=== PATIENT | female | born 1970 | race African-American/Black ===

== ENCOUNTER → 2017-01-07 | Outpatient (CLI) | payer OTHER ==
[~2017-01-07] MED LIST: ALBUTEROL SULFA10 GM INH; AMLODIPINE BESY10 MG PO; APRESOLINE PO; BACTRIM DS TABL1 TA1 DOB; BACTRIM DS TABL1 TA1 PO; BENTYL20 MG DOB; BUMETANIDE2 M1 PO; BUMEX PO; CALCIUM 5001 TAB PO; HUMALOG100 U/ML SUBQ; HYDRALAZINE HCL50 MG PO; HYDROCHLOROTHIA25 MG PO; IRON SUPPLEMENT1 TAB PO; IRON325 ( 651 PO; LANTUS100 U/ML SUBQ; LANTUS100 UNITS/; LISINOPRIL PO; METOPROLOL TAR25 MG PO; MIRALAX17 G2 PO; NAPROSYN500 MG PO; NOVOLOG100 U/ML; PREDNISONE5 MG PO; PROTONIX20 MG PO; PYRIDIUM100 MG PO; SOD BICARBONATE PO; TOPROL XL PO; ZYVOX600 MG PO
[2017-01-07 10:08] LABS: HEMATOCRIT 29.5 % (35.0-45.0); HEMOGLOBIN 9.6 gm/dL (12.0-16.0); MEAN CELL VOLUME 88.2 FL (83-96); MEAN CORPUSCULAR HEMOGLOBIN 28.5 PG (28-34); MEAN CORPUSCULAR HGB CONC 32.3 g/dL (30-36); MEAN PLATELET VOLUME 9.7 FL (6.5-11.5); RED BLOOD COUNT 3.35 X10e (3.90-5.30); RED CELL DISTRIBUTION WIDTH 13.4 % (11.0-15.5); URINE APPEARANCE CLOUDY; URINE BILIRUBIN NEG (NEG); URINE BLOOD 1+ (NEG); URINE COLOR YELLOW; URINE GLUCOSE >1000 MG/DL (NEG); URINE KETONE NEG (NEG); URINE LEUKOCYTE ESTERASE 2+ (NEG); URINE NITRATE NEG (NEG); URINE PROTEIN 3+ (NEG); URINE SPECIFIC GRAVITY 1.013 (1.003-1.035); URINE UROBILINOGEN 0.2 MG/DL (NEG); WHITE BLOOD COUNT 6.5 X10e3 (4.0-10.5)
[2017-01-07 10:10] LABS: U HYALINE CASTS AUWI 0-2 /[LPF]; URINE BACTERIA AUWI 4+ (NEGATIVE); URINE SQUAMOUS EPITHELIAL CELL FEW /[HPF]; UWBCS1 AUWI 200-300 (0-5)
[2017-01-07 10:37] LABS: CREATININE,RANDOM URINE 41 mg/dL; TOTAL PROTEIN,RANDOM URINE 173 mg/dl (<10)
[2017-01-07 10:45] LABS: ALBUMIN SERUM 3.5 g/dL (3.5-5.0); BILIRUBIN,TOTAL 0.7 mg/dL (0.2-2.0); BUN/CREATININE RATIO 16.66; CREATININE SERUM 3.9 mg/dL (0.6-1.4); MAGNESIUM 2.1 mg/dL (1.6-3.0); PHOSPHOROUS 4.5 mg/dL (2.5-4.6); POTASSIUM 5.2 mmol/L (3.5-5.1); PROTEIN TOTAL SERUM 6.5 g/dL (6.0-8.3)
[2017-01-14 05:16] LABS: CALCIUM (PTHINTACT) 9.2 mg/dL (8.6-10.2)
== END | disposition home or self-care (01) ==
LOC: CLAB 09:23
PROVIDERS: Internal Medicine Nephrology
DX: E11.22 Type 2 diabetes mellitus with diabetic chronic kidney disease (principal); I12.9 Hypertensive chronic kidney disease with stage 1 through stage 4 chronic kidney disease, or unspecified chronic kidney disease; N18.4 Chronic kidney disease, stage 4 (severe); D63.1 Anemia in chronic kidney disease; E87.2 Acidosis; E11.21 Type 2 diabetes mellitus with diabetic nephropathy; R80.0 Isolated proteinuria
CPT/HCPCS: 36415; 80053; 81003; 82310; 82570; 83735; 83970; 84100; 84156; 85027

== ENCOUNTER 2017-03-14 18:47 | Emergency (ER) | payer OTHER | END 2017-03-14 20:30 | disposition left against medical advice (07) | LOC: CED 18:47 | DX: Z53.21 Procedure and treatment not carried out due to patient leaving prior to being seen by health care provider (principal) ==

== ENCOUNTER → 2017-04-27 | Outpatient (CLI) | payer OTHER ==
[2017-04-27 13:19] LABS: HEMATOCRIT 27.3 % (35.0-45.0); HEMOGLOBIN 9.1 gm/dL (12.0-16.0); MEAN CORPUSCULAR HEMOGLOBIN 29.8 PG (28-34); MEAN CORPUSCULAR HGB CONC 33.5 g/dL (30-36); MEAN PLATELET VOLUME 8.4 FL (6.5-11.5); RED BLOOD COUNT 3.07 X10e (3.90-5.30); RED CELL DISTRIBUTION WIDTH 15.2 % (11.0-15.5); WHITE BLOOD COUNT 6.1 X10e3 (4.0-10.5)
== END | disposition home or self-care (01) ==
LOC: CSSDAY 04-24 08:00
PROVIDERS: Internal Medicine Nephrology
DX: N18.4 Chronic kidney disease, stage 4 (severe) (principal); D63.1 Anemia in chronic kidney disease
CPT/HCPCS: 36415; 85027; 96372; J0881

== ENCOUNTER → 2017-05-12 | Outpatient (CLI) | payer OTHER ==
[2017-05-12 12:23] LABS: HEMATOCRIT 31.1 % (35.0-45.0); HEMOGLOBIN 10.5 gm/dL (12.0-16.0); MEAN CELL VOLUME 90.3 FL (83-96); MEAN CORPUSCULAR HEMOGLOBIN 30.5 PG (28-34); MEAN CORPUSCULAR HGB CONC 33.7 g/dL (30-36); MEAN PLATELET VOLUME 7.8 FL (6.5-11.5); RED BLOOD COUNT 3.45 X10e (3.90-5.30); RED CELL DISTRIBUTION WIDTH 16.4 % (11.0-15.5); WHITE BLOOD COUNT 5.5 X10e3 (4.0-10.5)
[2017-05-12 13:45] LABS: IRON SERUM 58 ug/dL (28-170); TOTAL IRON BINDING CAPACITY 229 ug/dL (269-535); TRANSFERRIN 164 mg/dL (192-382); TRANSFERRIN SATURATION 25 % (20-50)
[2017-05-12 13:48] LABS: FOLATE (FOLIC ACID) 10.2 ng/mL (>5.8)
== END | disposition home or self-care (01) ==
LOC: CSSDAY 08:00 → CLAB 11:36
PROVIDERS: Internal Medicine Nephrology
DX: N18.4 Chronic kidney disease, stage 4 (severe) (principal); D63.1 Anemia in chronic kidney disease
CPT/HCPCS: 36415; 82728; 82746; 83540; 83550; 85027; 96372; J0881